=== PATIENT | female | born 1980 | race Caucasian/White ===

== ENCOUNTER 2024-04-04 06:22 | Day surgery (SDC) | payer OTHER ==
[2024-03-27 14:16] VITALS: BMI 32.3
[2024-04-04] MEDS ORDERED: fentaNYL 50 mcg/mL 1 mL Vial ONE ×2 (09:43→09:46)
== END 2024-04-04 11:05 | disposition home or self-care (01) ==
LOC: CSHSDC 06:22
PROVIDERS: ATTEND Surgery
PROC: 0DBP8ZX Excision of Rectum, Via Natural or Artificial Opening Endoscopic, Diagnostic (ICD-10-PCS; principal; 2024-04-04)
DX: Z12.11 Encounter for screening for malignant neoplasm of colon (principal); K63.5 Polyp of colon; K60.1 Chronic anal fissure; K64.9 Unspecified hemorrhoids; F41.9 Anxiety disorder, unspecified; F32.A Depression, unspecified; E78.5 Hyperlipidemia, unspecified; F17.290 Nicotine dependence, other tobacco product, uncomplicated; Z80.0 Family history of malignant neoplasm of digestive organs; Z87.59 Personal history of other complications of pregnancy, childbirth and the puerperium; Z79.899 Other long term (current) drug therapy
CPT/HCPCS: 88305; J3010